=== PATIENT | male | born 1985 ===

== ENCOUNTER 2021-11-01 13:10 | Emergency (ER) | payer SELFPAY | END 2021-11-01 13:26 | disposition left against medical advice (07) | LOC: MW.ED 13:10 | DX: Z53.21 Procedure and treatment not carried out due to patient leaving prior to being seen by health care provider (principal) ==

== ENCOUNTER 2021-11-01 18:07 | Day surgery (SDC) | payer BC ==
[2021-11-01] MEDS ORDERED: Piperacillin/Tazobactam 3.375 GM in Sodium Chloride 0.9% 50 ML IV ONE (18:44)
[2021-11-01] MEDS ORDERED: Lactated Ringers 1,000 ML IV ONE (18:57)
[2021-11-01] MEDS ORDERED: Famotidine 20 MG/2 ML SDV IVPUSH ONE (19:19)
[2021-11-01] MEDS ORDERED: Sodium Chloride 0.9% 2.5 ML Syringe FLUSH PRN (19:23)
[2021-11-01] MEDS ORDERED: Sodium Chloride 0.9% 20 ML SDV IV PRN (19:23)
[2021-11-01] MEDS ORDERED: Sodium Chloride 0.9% 10 ML Syringe FLUSH PRN (19:23)
[2021-11-01] MEDS ORDERED: Lactated Ringers 1,000 ML IV SCH (19:30)
[2021-11-01] MEDS ORDERED: HYDROmorphone 1 MG/ML Syringe IVPUSH PRN ×2 (21:00→21:18)
[2021-11-01] MEDS ORDERED: Acetaminophen/oxyCODONE 325-5 MG Tab PO PRN (21:00)
[2021-11-01] MEDS ORDERED: Bupivacaine 0.5% 30 ML SDV ONE (21:10)
[2021-11-01] MEDS ORDERED: Ondansetron 4 MG/2 ML SDV IVPUSH PRN (21:18)
[2021-11-01] MEDS ORDERED: fentaNYL 100 MCG/2 ML SDV IVPUSH PRN (21:18)
[2021-11-01] MEDS ORDERED: Metoclopramide 10 MG/2 ML SDV IVPUSH PRN (21:18)
[2021-11-01] MEDS ORDERED: Naloxone 0.4 MG/ML SDV IVPUSH PRN (21:18)
[2021-11-01] MEDS ORDERED: Albuterol 0.083% 2.5 MG/3 ML Neb Soln NEB PRN (21:18)
[2021-11-01] MEDS ORDERED: Desflurane 240 ML Bottle ONE (21:22)
[2021-11-02] MEDS: Ketorolac 30 MG/ML SDV IM SCH ×2 (03:42→08:07)
[2021-11-02] MEDS ORDERED: Ketorolac 30 MG/ML SDV IVPUSH SCH (08:06)
== END 2021-11-02 10:43 | disposition home or self-care (01) ==
LOC: MW.ED 18:07 → MW.SDS 19:24 → MW.MS 19:24 → MW.SDS 11-02 10:43
PROVIDERS: ATTEND Surgery
DX: K35.30 Acute appendicitis with localized peritonitis, without perforation or gangrene (principal); I10 Essential (primary) hypertension; F17.210 Nicotine dependence, cigarettes, uncomplicated; E66.9 Obesity, unspecified; Z01.812 Encounter for preprocedural laboratory examination; Z20.822 Contact with and (suspected) exposure to COVID-19; Z79.899 Other long term (current) drug therapy; Z68.43 Body mass index [BMI] 50.0-59.9, adult
CPT/HCPCS: 44970; 87635; A9270; J2543; J3490; J7030; J7120; 00840; U0002